=== PATIENT | male | born 1975 | race Caucasian/White ===

== ENCOUNTER 2017-03-19 11:55 | Emergency (ER) | payer OTHER ==
[2017-03-19 11:59] VITALS: BP 139/74; PULSE 81; TEMP 97.7; BMI 31.0
[2017-03-19] MEDS ORDERED: IBUPROFEN 600 MG TABLET (FP) PO ONE ×2 (12:17→12:20)
--- NOTE | 2017-03-19 12:23 | PDOC ---
History of Present Illness - General Chief Complaint: Sore Throat Stated Complaint: THROAT PAIN Time Seen by Provider: 03/19/17 12:12 History Source: Patient Exam Limitations: No Limitations - History of Present Illness Initial Comments: 03/19/17 12:19 41 yr male with c/o sore throat on and off for 2 weeks. Pt denies fever or chills no medical history no sick contacts. Pt recently traveled to [facility]. Timing/Duration: other (2 weeks) Associated Symptoms: denies: fever/chills Past History - Past Medical History Allergies/Adverse Reactions: Allergies Allergy/AdvReac Type Severity Reaction Status Date / Time No Known Allergies Allergy Verified 03/19/17 12:00 Home Medications: Ambulatory Orders NK [No Known Home Medication] 03/19/17 Other medical history: PATIENT DENIES MEDICAL HISTORY - Family Disease History Comment:: 03/19/17 12:20 none relevant - Psycho/Social/Smoking Cessation Hx Suicidal Ideation: No Smoking History: Never smoked Hx Alcohol Use: No Drug/Substance Use Hx: No Review of Systems - Review of Systems Able to Perform ROS?: Yes Is the patient limited Mohawk proficient: No Constitutional: No: Symptoms Reported *Physical Exam - Vital Signs Last Vital Signs Temp Pulse Resp BP Pulse Ox 97.7 F 81 18 139/74 98 03/19/17 11:56 03/19/17 11:56 03/19/17 11:56 03/19/17 11:56 03/19/17 11:56 - Physical Exam General Appearance: Yes: Nourished, Appropriately Dressed HEENT: positive: EOMI, GAIL, Normal ENT Inspection, TMs Normal, Pharyngeal Erythema. negative: Pale Conjunctivae, Tonsillar Exudate, Tonsillar Erythema Neck: positive: Supple. negative: Tender, Lymphadenopathy (R), Lymphadenopathy (L) Respiratory/Chest: positive: Lungs Clear, Normal Breath Sounds Cardiovascular: positive: Regular Rhythm, Regular Rate Medical Decision Making - Medical Decision Making 03/19/17 12:43 cc: sore throat for 2 weeks no fever pt [place] ampicillin from [place] will check for strep no exudate or lymphadenopathy pt speaking clearly will give motrin as pt did not take any meds for pain denies abd pain or heartburn, no reflux symptoms *DC/Admit/Observation/Transfer Diagnosis at time of Disposition: Pharyngitis Qualifiers: Pharyngitis/tonsillitis etiology: unspecified etiology Qualified Code(s): J02.9 - Acute pharyngitis, unspecified - Discharge Dispostion Disposition: HOME Condition at time of disposition: Good - Referrals Referrals: Omero Smith MD [Staff Physician] - - Patient Instructions Additional Instructions: follow up with for further evaluation to look further down your throat negative for strep infection you do not need antibiotics gargle with warm salt water 4-5 times a day take advil (motrin, ibuprofen ) 600mg every 6hrs for pain as needed
== END 2017-03-19 12:47 | disposition home or self-care (01) ==
LOC: JERFT 11:55
DX: J02.9 Acute pharyngitis, unspecified (principal)
CPT/HCPCS: 87070; 87077; 87430; 99281-25

== ENCOUNTER 2018-11-09 15:10 | Emergency (ER) | payer OTHER ==
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
[2018-11-09 15:19] VITALS: BP 138/71; PULSE 81; TEMP 97.7; BMI 33.1
[2018-11-09] MEDS ORDERED: KETOROLAC TROMETHAMINE 60 MG/2 ML VIAL IM ONE (15:41)
[2018-11-09] MEDS ORDERED: KETOROLAC TROMETHAMINE 60 MG/2 ML VIAL ONE (15:42)
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
== END 2018-11-09 16:01 | disposition home or self-care (01) ==
LOC: JERFT 15:10
PROC: 3E0233Z Introduction of Anti-inflammatory into Muscle, Percutaneous Approach (ICD-10-PCS; principal; 2018-11-09)
DX: S39.012A Strain of muscle, fascia and tendon of lower back, initial encounter (principal); V43.52XA Car driver injured in collision with other type car in traffic accident, initial encounter; Y93.89 Activity, other specified; Y92.410 Unspecified street and highway as the place of occurrence of the external cause
CPT/HCPCS: 99281-25

== ENCOUNTER 2021-11-07 11:47 | Emergency (ER) | payer OTHER ==
[2021-11-07 11:58] VITALS: BP 128/80; PULSE 82; TEMP 97.7; BMI 34.4
[2021-11-07] MEDS ORDERED: DIPHTH,PERTUSS(ACELL),TET 0.5 ML DISP.SYRIN IM ONE ×2 (12:56→12:58)
== END 2021-11-07 13:08 | disposition home or self-care (01) ==
LOC: JERFT 11:47
PROC: 3E0234Z Introduction of Serum, Toxoid and Vaccine into Muscle, Percutaneous Approach (ICD-10-PCS; principal; 2021-11-07)
DX: S61.211A Laceration without foreign body of left index finger without damage to nail, initial encounter (principal)
CPT/HCPCS: 90471; 90715; 99283-25